=== PATIENT | female | born 1970 | race Caucasian/White ===

== ENCOUNTER → 2018-06-24 | Outpatient (REF) ==
[~2018-06-24] MED LIST: ACCOLATE20 MG PO; ALLEGRA30 MG PO; HYDROCHLOROT25 MG PO; LORTAB 7.57.5 MG PO; MAXALT-MLT10 MG PO; PROAIR HFA IN; PROTONIX40 MG PO; SEA-OMEGA300 MG PO; ZYRTEC10 MG PO
== END | disposition home or self-care (01) | DRG 645 ==
LOC: LAB 08:08
PROVIDERS: ATTEND Internal Medicine
DX: C73 Malignant neoplasm of thyroid gland (principal); R73.09 Other abnormal glucose; E04.9 Nontoxic goiter, unspecified